=== PATIENT | female | born 2005 | race Caucasian/White ===

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

== ENCOUNTER 2024-09-21 06:10 | Day surgery (SDC) | payer OTHER ==
[2024-09-21] MEDS: Lactated Ringers 1,000 ML IV SCH (06:23)
[2024-09-21 06:27] LABS: HCG URINE TEST NEGATIVE (NEGATIVE)
[2024-09-21 06:37] VITALS: RESP 18
[2024-09-21] MEDS ORDERED: propofoL IV ONE ×2 (07:48→08:11)
[2024-09-21] MEDS ORDERED: Xylocaine-Mpf 2% 5 Ml Vial ONE (07:51)
[2024-09-21] MEDS ORDERED: Versed 2 MG/2 ML Injection ONE (07:51)
[2024-09-21 09:16] VITALS: BP 90/47; PULSE 57; TEMP 98; O2SAT 98
--- NOTE | 2024-09-22 11:52 | OP ---
SURGERY DATE/TIME: 09/21/2024 PREOPERATIVE DIAGNOSIS: Rectal bleeding. POSTOPERATIVE DIAGNOSES: 1) Anal fissure. 2) Normal colon. PROCEDURE: Colonoscopy. SURGEON: Christian Coronel MD ANESTHESIA: Medications were given by the anesthesia department. INDICATIONS: The patient is a 19-year-old white female who reports for the past 3 years she has been having problems with rectal bleeding basically on the toilet paper after she wipes, not mixed in with the stool. The patient reports having bowel movements roughly once a week. She is having no abdominal pain with it. The patient was felt the need to have endoscopic evaluation, and she was appraised of the risks of the procedure including risk of perforation, phlebitis, untoward reaction to medication, bleeding, and missed lesions. The patient verbalized his understanding and desire to have procedure performed. DESCRIPTION OF PROCEDURE AND FINDINGS: The patient was placed in the left lateral decubitus position. She had continuous pulse oximetry, ECG monitoring, and intermittent blood pressure monitoring during the examination. During the initial part of the examination, we observed the anal area and found a small fissure. This was easy to bleed with just gentle traction. On digital examination otherwise, the anal sphincter tone was normal. No masses were felt. No hemorrhoids. The flexible Olympus videocolonoscope was used to intubate the rectum. A view of the colon was developed sequentially to the cecum including a short distance into the terminal ileum. Upon insertion and withdrawal, including retroflexed view in the rectum, no mucosal lesions were encountered. The scope was removed from the patient, who tolerated the procedure well, and was sent back to outpatient recovery in good condition. The prep was noted to be good.
== END 2024-09-21 09:25 | disposition home or self-care (01) ==
LOC: SDC 06:10
PROVIDERS: ATTEND Family Medicine
DX: K60.2 Anal fissure, unspecified (principal); K62.5 Hemorrhage of anus and rectum
CPT/HCPCS: 81025; J2250; J2704